=== PATIENT | male | born 1980 | race Caucasian/White ===

== ENCOUNTER 2022-01-09 16:18 | Inpatient (IN) | payer SELFPAY ==
[~2022-01-09] VITALS: Ht 185.4 cm; Wt 74.4 kg
--- NOTE | 2022-01-09 16:30 | NUR ---
[id number] FOR AGITATION M/B HITTING HEAD ON A WALL, ROLLING ON THE GROUND THE PATIENT IS ALERT AND ORIENTED X1. PT ATTACHED TO MONITOR. AWAITING MD BRAGG.
--- NOTE | 2022-01-09 16:35 | NUR ---
Carmelo mullins in [facility] - 01/09/22 at 1641 by JAZ URINE COLLECTED AND SENT TO THE LAB
--- NOTE | 2022-01-09 16:40 | NUR ---
Carmelo mullins in [facility] - 01/09/22 at 1641 by JAZ URINE SENT TO LAB
[2022-01-09] MEDS ORDERED: diphenhydrAMINE HCL 50 MG/ML VIAL ONE (16:48)
[2022-01-09] MEDS ORDERED: HALOPERIDOL LACTATE INJ 5 MG/ML VIAL ONE (16:49)
[2022-01-09] MEDS ORDERED: IV NS 0.9% 1,000 ML BAG IV ONE (17:00)
[2022-01-09] MEDS ORDERED: HALOPERIDOL LACTATE INJ 5 MG/ML VIAL IM ONE (17:00)
[2022-01-09] MEDS ORDERED: diphenhydrAMINE HCL 50 MG/ML VIAL IM ONE (17:00)
--- NOTE | 2022-01-09 17:03 | NUR ---
IV LINE ESTABLISHED ON LFA #18, BLOOD DRAWN AND SENT TO LAB.
[2022-01-09 17:08] LABS: BASOPHILS # (AUTO) 0.1 K/uL (0.0-0.2); BASOPHILS % (AUTO) 0.5 % (0.0-2.0); EOSINOPHILS % (AUTO) 0.7 % (0.0-6.0); HEMATOCRIT 35 % (33-45); HEMOGLOBIN 11.5 g/dL (11.5-14.8); LYMPHOCYTES # (AUTO) 1.7 K/uL (0.8-4.8); LYMPHOCYTES % (AUTO) 10.7 % (20.0-44.0); MEAN CORPUSCULAR HGB CONC 33 g/dl (31.0-36.0); MEAN CORPUSCULAR VOLUME 79 fL (82-100); MONOCYTES # (AUTO) 0.8 K/uL (0.1-1.30); MONOCYTES % (AUTO) 5.2 % (2.0-12.0); NEUTROPHILS # (AUTO) 12.8 K/uL (1.8-8.9); NEUTROPHILS % (AUTO) 82.9 % (43.0-81.0); PLATELET COUNT (AUTO) 248 K/uL (150-450); RED BLOOD CELL COUNT(AUTO) 4.46 MIL/uL (4.0-5.2); WHITE BLOOD COUNT (AUTO) 15.5 K/uL (4.3-11.0)
[2022-01-09 17:13] LABS: BILIRUBIN,URINE NEGATIVE (NEGATIVE); COLOR,URINE DARK YELLOW (YELLOW); LEUKOCYTE ESTERASE ,URINE NEGATIVE (NEGATIVE); NITRITE, URINE NEGATIVE (NEGATIVE); PROTEIN,URINE 30 mg/dl (NEGATIVE); UGLUCOSE NEGATIVE (NEGATIVE); UROBILINOGEN,URINE 0.2 EU/dL (0.2)
[2022-01-09 17:25] LABS: BACTERIA,URINE Many /HPF (None Seen); HYALINE CASTS, URINE Few /LPF (None Seen); SQUAMOUS EPITHELIAL CELL,UR Many /HPF (None Seen)
[2022-01-09 17:40] LABS: ALANINE AMINOTRANSFERASE 66 U/L (12-78); ALBUMIN 3.9 g/dL (3.4-5.0); ALKALINE PHOSPHATASE 93 U/L (46-116); ASPARTATE AMINOTRANSFERASE 48 U/L (15-37); BILIRUBIN,DIRECT 0.1 mg/dL (0.0-0.2); BILIRUBIN,TOTAL 0.6 mg/dL (0.2-1.0); CALCIUM, SERUM 8.6 mg/dL (8.5-10.1); CARBON DIOXIDE 28 mmol/L (21-32); CHLORIDE 103 mmol/L (98-107); GLUCOSE 71 mg/dL (74-106); POTASSIUM 3.9 mmol/L (3.5-5.1); SODIUM SERUM 142 mmol/L (136-145); TOTAL PROTEIN, SERUM 7.8 g/dL (6.4-8.2); UREA NITROGEN, BLOOD 37 mg/dL (7-18)
--- NOTE | 2022-01-09 17:42 | NUR ---
PT TAKEN TO CT VIA DEEPIKA
[2022-01-09 17:46] LABS: ACETAMINOPHEN < 2 ug/ml (10-30); ALCOHOL, BLOOD < 3 mg/dL (0-0)
[2022-01-09] MEDS ORDERED: TDAP [DIPH/PERTUSSIS/TET] 0.5 ML VIAL IM ONE ×2 (19:00→19:07)
--- NOTE | 2022-01-09 19:13 | NUR ---
TDAP GIVEN L DELTOID. LOT# [id number], EXP 10/28/2023
--- NOTE | 2022-01-09 19:36 | NUR ---
COVID SWAB SPECIMEN OBTAINED AND SENT TO LAB.
[2022-01-09] MEDS ORDERED: ASPIRIN 300 MG/SUPP.RECT RC ONE ×2 (20:30→20:44)
[2022-01-09] MEDS ORDERED: ACETAMINOPHEN 650 MG/SUPP.RECT RC ONE (20:42)
[2022-01-09] MEDS ORDERED: LORAZEPAM INJ 2 MG/ML VIAL IV PRN (21:00)
[2022-01-09] MEDS ORDERED: ACETAMINOPHEN 325 MG TABLET PO PRN (21:00)
[2022-01-09] MEDS ORDERED: ZOLPIDEM TARTRATE 5 MG TABLET PO PRN (21:00)
[2022-01-09] MEDS ORDERED: MAG HYDROX/AL HYDROX/SIMETH 30 ML UDC PO PRN (21:00)
[2022-01-09] MEDS ORDERED: MAGNESIUM HYDROXIDE 30 ML UDC PO PRN (21:00)
[2022-01-09] MEDS ORDERED: ONDANSETRON HCL/PF 4 MG/2 ML VIAL IVP PRN (21:00)
[2022-01-09] MEDS ORDERED: Z GUARD REMEDY 4 OZ OINT TP PRN (21:00)
[2022-01-09] MEDS ORDERED: IV NS 0.9% 1,000 ML IV ONE (22:30)
--- NOTE | 2022-01-09 22:30 | NUR ---
CRITICAL: TROP 80
--- NOTE | 2022-01-09 22:31 | NUR ---
TROP OF [address] CLEVELAND WITH NO NEW ORDER AT THIS TIME
--- NOTE | 2022-01-09 23:13 | NUR ---
REPORT GIVEN TO TIM COLUNGA FOR CHERYL
[2022-01-09] MEDS ORDERED: CEFTRIAXONE 1 G VIAL ONE (23:39)
[2022-01-09 23:40] VITALS: BP 129/90
[2022-01-09] MEDS: CEFTRIAXONE 1 G in IV D5W 50 ML IV SCH (23:40)
--- NOTE | 2022-01-09 23:40 | NUR ---
RN NOTES RECEIVED CARE OF PATIENT FROM ER NURSE, PATIENT IS NON-VERBAL, ANXIOUS, NON-INTERACTIVE, UNABLE TO MAKE NEEDS KNOWN. PATIENT IS ON ROOM AIR, O2 SAT IS 96%, NO SOB NOTED. TELE MONITOR SHOWING NSR WITH HR OF 73. INITIAL VITAL SIGNS ARE WNL. MULTIPLE WOUNDS NOTED ON PATIENT, ON BLE AND ON NOSE. WILL CARRY OUT ALL MD ORDERS. SAFETY MEASURES INITIATED PER HOSPITAL PROTOCOLS. WILL CONTINUE TO MONITOR PATIENT.
[2022-01-09] MEDS: IV NS 0.9% 1,000 ML IV SCH (23:44)
--- NOTE | 2022-01-10 | NUR ---
RN NOTES PATIENT IS NON-INTERACTIVE, NON-VERBAL, OPENS EYES TO LIGHT PAINFUL STIMULI ONLY. NOT ABLE TO OBTAIN ANY HISTORY OR ASK FOR CODE STATUS AT THIS TIME.
[2022-01-10 04:00] VITALS: BP 147/92
[2022-01-10] MEDS: IV NS 0.9% 1,000 ML IV SCH ×3 (05:37→16:40)
--- NOTE | 2022-01-10 06:21 | NUR ---
RN NOTES PATIENT WOKE UP FROM SLEEP. ALERT AND ORIENTED X3. PATIENT IS NOW ABLE TO VERBALIZE NEEDS. PATIENT EXPRESSES DISCOMFORT, REPOSITIONED PATIENT. PATIENT WISHES TO BE FULL CODE STATUS. WILL ORDER FULL CODE STATUS.
--- NOTE | 2022-01-10 06:49 | NUR ---
RN CLOSING NOTES WILL ENDORSE CARE OF PATIENT TO AM NURSE, PATIENT IN BED, PATIENT IS A/O X3, ABLE TO MAKE NEEDS KNOWN. PATIENT IN NO DISCOMFORT OR PAIN AT THIS TIME, PATIENT DOES APPEAR ANXIOUS, DEESCALATION AND RELAXATION TECHNIQUES PROVEN INEFFECTIVE. NO SIGNIFICANT FINDINGS UPON ALL NURSING ASSESSMENTS. ALL DUE MEDS GIVEN AND PATIENT NEEDS ATTENDED TO. SAFETY MEASURES IMPLEMENTED PER HOSPITAL PROTOCOLS. WILL ENDORSE TO AM NURSE FOR CONTINUITY OF CARE.
[2022-01-10 07:18] LABS: BASOPHILS % (AUTO) 0.4 % (0.0-2.0); EOSINOPHILS % (AUTO) 1.7 % (0.0-6.0); HEMATOCRIT 35 % (39-51); HEMOGLOBIN 11.7 g/dL (13.5-17.5); LYMPHOCYTES # (AUTO) 1.9 K/uL (0.8-4.8); LYMPHOCYTES % (AUTO) 20.1 % (20.0-44.0); MEAN CORPUSCULAR HGB CONC 33 g/dl (31.0-36.0); MEAN CORPUSCULAR VOLUME 79 fL (80-96); MONOCYTES # (AUTO) 0.6 K/uL (0.1-1.30); MONOCYTES % (AUTO) 6.2 % (2.0-12.0); NEUTROPHILS # (AUTO) 6.8 K/uL (1.8-8.9); NEUTROPHILS % (AUTO) 71.6 % (43.0-81.0); PLATELET COUNT (AUTO) 209 K/uL (150-450); RED BLOOD CELL COUNT(AUTO) 4.45 MIL/uL (4.5-6.0); WHITE BLOOD COUNT (AUTO) 9.5 K/uL (4.3-11.0)
[2022-01-10 07:39] LABS: CALCIUM, SERUM 8.6 mg/dL (8.5-10.1); CREATININE 1.4 mg/dL (0.6-1.3); MAGNESIUM 2.1 mg/dL (1.8-2.4); PHOSPHORUS 3.4 mg/dL (2.5-4.9); POTASSIUM 3.7 mmol/L (3.5-5.1)
[2022-01-10 08:00] VITALS: BP 160/90
[2022-01-10 12:00] VITALS: BP 175/114
[2022-01-10] MEDS: NITROGLYCERIN PACKET 1 GM PACKET TOP SCH ×2 (12:54→20:25)
[2022-01-10 16:00] VITALS: BP 161/97
--- NOTE | 2022-01-10 16:20 | NUR ---
RN NOTE PT NOTED WITH HIGH BP-175/114 P-85. PT STILL NOTED LETHARGIC, CARDIO MD MADE AWARE, WITH NEW ORDER NITRO PASTE 2G. WILL CONTINUE TO MONITOR.
--- NOTE | 2022-01-10 18:33 | NUR ---
RN NOTE PT RN SWALLOW EVAL WITH PUDDING, PT TOLERATED WELL WITH ASPIRATION. WILL INFORM PMD. PT STILL NOTED LETHARGIC AT TIMES BUT NOTED WITH EPISODES OF BEING WELL AWAKE. SAFETY MEASURES FOLLOWED. IV ACCESS TO LFA G20 IN PLACE WITH NS @125/HR. WILL CONTINUE TO MONITOR.
--- NOTE | 2022-01-10 19:30 | NUR ---
RN OPENING NOTE PATIENT IN BED, EYES CLOSED. PATIENT AWAKENED WITH VERBAL STIMULI, PATIENT MILDLY LETHARGIC. PATIENT IS A/O X 3 AT THIS TIME. PATIENT IS ON RA, TOLERATING WELL, NO SOB NOTED. PATIENT IS SR 92 BPM WITH INVERTED T WAVE. PATIENT HAS NS RUNNING AT 125 ML/HR AT LFA 20 G. INFUSING WELL. NO REPORTS OF PAIN AT THIS TIME. SAFETY MEASURES IN PLACE: BED LOCKED AND IN LOWEST POSITION, CALL LIGHT WITHIN REACH, SIDE RAILS UP. WILL MONITOR PATIENT CLOSELY.
[2022-01-10 20:00] VITALS: BP_SYST 107; BP_SYST 165; BP_DIAS 104; BP_DIAS 55
[2022-01-10] MEDS: CEFTRIAXONE 1 G in IV D5W 50 ML IV SCH (20:25)
--- NOTE | 2022-01-10 21:15 | NUR ---
RN NOTE NOTIFIED MD OF PATIENT'S HIGH BP, ORDERED ATIVAN 1 MG IV ONE TIME DOSE ONLY PATIENT'S BP HIGH D/T PATIENT GOING THROUGH WITHDRAWAL. ALSO NOTIFIED MD THAT PATIENT IS NOW A/O X 3, TALKING AND AWAKE. PATIENT NOW REGULAR DIET. WILL MONITOR TOLERANCE FOR DIET. Addendum: 01/10/22 at 2331 by HERBERT RAUSCH RN BP 165/104, RECHECK 168/101, MANUAL RECHECK 170/108
[2022-01-10] MEDS ORDERED: LORAZEPAM INJ 2 MG/ML VIAL IV ONE (21:30)
--- NOTE | 2022-01-10 22:30 | NUR ---
BP RECHECK AFTER 1 HR AFTER ATIVAN ADMIN 191, 123, 190/129, MANUAL RECHECK 180/125 HR 94 BPM. PAGED , AWAITING CALL BACK.
--- NOTE | 2022-01-10 23:24 | NUR ---
RN NOTE DR. CLEVELAND NOTIFIED OF INCREASING BP, MD ORDERED HYDRALAZINE 25 MG PO ONCE NOW. ORDER READ BACK, CARRIED OUT.
[2022-01-10] MEDS ORDERED: hydrALAZINE HCL 25 MG TABLET PO ONE (23:30)
[2022-01-11] VITALS: BP 158/97
[2022-01-11 04:00] VITALS: BP 200/110
--- NOTE | 2022-01-11 04:30 | NUR ---
RN NOTE BP 235/97, MANUAL BP RECHECK 200/110. PAGED. WAITING CALL BACK
[2022-01-11] MEDS: IV NS 0.9% 1,000 ML IV SCH ×2 (04:44→21:00)
--- NOTE | 2022-01-11 06:20 | NUR ---
NOTIFIED BY TRUDY FROM LAB RE: HIGH CKMB LEVEL 11.2, WILL NOTIFY
--- NOTE | 2022-01-11 06:44 | NUR ---
RN CLOSING NOTE PATIENT IN BED, EYES CLOSED. PATIENT AWAKENED WITH VERBAL STIMULI, A/O X 2-3 AT THIS TIME. PATIENT IS ON RA, TOLERATING WELL, NO SOB NOTED. PATIENT IS SR 90 BPM WITH INVERTED T WAVE. PATIENT HAS A LFA 20 G, IVF ON HOLD AT THIS TIME D/T HIGH BP. MD AWARE, WHEN BP GOES DOWN THEY CAN RESTART, MD AWARE OF CKMB LEVEL WELL. MD ORDERED HYDRALAZINE 25 MG PO Q6HR PRN, TRBO. NO REPORTS OF PAIN AT THIS TIME. SAFETY MEASURES IN PLACE: BED LOCKED AND IN LOWEST POSITION, CALL LIGHT WITHIN REACH, SIDE RAILS UP. ALL NEEDS MET AND ATTENDED. ALL ORDERS CARRIED OUT. WILL ENDORSE TO DAY SHIFT NURSE FOR CHERYL.
[2022-01-11] MEDS: hydrALAZINE HCL 25 MG TABLET PO PRN ×2 (07:08→17:26)
--- NOTE | 2022-01-11 07:08 | NUR ---
HYDRALAZINE PRN GIVEN FOR BP 197/108, HR 93 BPM
--- NOTE | 2022-01-11 07:35 | NUR ---
RN OPENING NOTE RECIEVED PATIENT FROM NIGHTSHIFT RN. PATIENT CURRENTLY ASLEEP BREATHING EVENLY AND UNLABORED WITH NO SIGNS OF DISTRESS NOTED. CRISIS NURSE IS SHOWING SINUS RHYTHM IN THE 90S WITH INVERTED T-WAVES. SCABS NOTED ON NOSE. FACIAL LACERATION NOTED. WOUNDS CLOSED. BED ALARM IS ON WITH BED AT LOWEST POSITION AND CALL LIGHT WITHIN REACH. IV ACCESS ON LEFT FOREARM, NO FLUIDS RUNNING AT THIS TIME DUE TO HYPERTENSION. WILL CONTINUE PLAN OF CARE AND ANTICIPATE NEEDS.
[2022-01-11 08:00] VITALS: BP 199/126
[2022-01-11] MEDS: NITROGLYCERIN PACKET 1 GM PACKET TOP SCH ×2 (08:24→21:03)
--- NOTE | 2022-01-11 08:52 | NUR ---
WOUND CARE CONSULT: PT PRESENTS WITH DRY ABRASION TO NOSE, MULTIPLE AREAS OF SKIN DISCOLORATION AND SCARRING WELL LEFT LATERAL FOOT ABRASION, PRESENT ON ADMISSION. RECOMMENDATIONS MADE FOR SKIN PROTECTION. DISCUSSED WITH NURSING STAFF. PT IS CONTINENT AND INDEPENDENT WITH BED MOBILITY. MD IN AGREEMENT WITH PLAN OF CARE.
[2022-01-11] MEDS ORDERED: CLONIDINE HCL 0.3 MG/24H PTWK 1 EA PATCH TD SCH (09:00)
--- NOTE | 2022-01-11 09:50 | NUR ---
RECHECKED VITAL SIGNS. BLOOD PRESSURE 142/96. PULSE 87.
[2022-01-11] MEDS: AMLODIPINE BESYLATE 10 MG TABLET PO SCH (10:26)
[2022-01-11 12:00] VITALS: BP 165/95
[2022-01-11] MEDS: hydrALAZINE HCL 25 MG TABLET PO SCH ×2 (12:50→21:01)
[2022-01-11 16:00] VITALS: BP 168/101
--- NOTE | 2022-01-11 17:00 | NUR ---
RN NOTE IVF REMAINS ON HOLD DUE TO BLOOD PRESSURE, 168/101
--- NOTE | 2022-01-11 18:49 | NUR ---
RN CLOSING NOTE PATIENT BREATHING EVENLY AND UNLABORED WITH NO SIGNS OF DISTRESS ON ROOM AIR SATING AT 100%. ALERT AND ORIENTED TIMES 4. PATIENT REFUSED BED BATH THROUGHOUT SHIFT. BED ALARM IS ON WITH BED AT LOWEST POSITION AND CALL LIGHT WITHIN REACH. IV ACCESS ON LEFT FOREARM, NO FLUIDS RUNNING AT THIS TIME DUE TO HYPERTENSION. ALL MEDICATIONS GIVEN. PATIENT FINISHED ALL MEALS AND HAD ADDITIONAL SNACKS. WILL ENDORSE TO NIGHTSHIFT RN FOR CHERYL.
--- NOTE | 2022-01-11 19:05 | NUR ---
RN NOTE REPORT RECEIVED FROM LORNA RN/SHARON RN, PATIENT IN BED, AO X 3-4, IN NO ACUTE DISTRESS AT THIS TIME. RESPIRATION UNLABORED, SATURATION AT 100% ON ROOM AIR, SR ON THE MONITOR, HR IS 98. IV LINE AT LFA 20G PATENT AND FLUSHING WELL, NO S/S OF INFECTION OR INFILTRATION, PER LORNA RN/SHARON RN, IV FLUID HELD BY MD DUE TO HIGH BP, TO RESUME ONCE BP AT NORMAL LIMITS. SAFETY MEASURES IMPLEMENTED. PATIENT BED ALARM IS ON. HEAD OF BED ELEVATED. BED IS LOCKED, IN LOWEST POSITION AND SIDE RAILS UP. CALL LIGHT WITHIN REACH OF THE PATIENT. WILL CONTINUE TO MONITOR AND REASSESS FOR ANY CHANGES.
--- NOTE | 2022-01-11 19:10 | NUR ---
RN NOTE REPORT RECEIVED FROM SHARON RN/LORNA RN, PATIENT IN BED, AO X 3-4, IN NO ACUTE DISTRESS AT THIS TIME. RESPIRATION UNLABORED, SATURATION AT 95% ON ROOM AIR, HR IS 82. ANGEL MIDLINE, AND AMANDO PICC LINE PATENT AND FLUSHING WELL, NO S/S OF INFECTION OR BLEEDING NOTED, WITH NS INFUSING AT 75 ML/HR. PATIENT IS CONTINENT AND ABLE TO USE URINAL. SAFETY MEASURES IMPLEMENTED. PATIENT BED ALARM IS ON. HEAD OF BED ELEVATED. BED IS LOCKED, IN LOWEST POSITION AND SIDE RAILS UP. CALL LIGHT WITHIN REACH OF THE PATIENT. WILL CONTINUE TO MONITOR AND REASSESS FOR ANY CHANGES. Addendum: 01/12/22 at 0004 by FRITZ ROJO RN DOCUMENTATION MEANT FOR ANOTHER PATIENT
[2022-01-11 20:00] VITALS: BP 151/97
[2022-01-11] MEDS: CEFTRIAXONE 1 G in IV D5W 50 ML IV SCH (21:03)
[2022-01-12] VITALS: BP 146/52
[2022-01-12 04:00] VITALS: BP 138/62
[2022-01-12] MEDS: hydrALAZINE HCL 25 MG TABLET PO SCH (06:05)
[2022-01-12] MEDS: IV NS 0.9% 1,000 ML IV SCH (06:21)
[2022-01-12 08:00] VITALS: BP 192/140
[2022-01-12] MEDS: NITROGLYCERIN PACKET 1 GM PACKET TOP SCH (08:18)
[2022-01-12] MEDS: AMLODIPINE BESYLATE 10 MG TABLET PO SCH (08:19)
[2022-01-12] MEDS ORDERED: hydrALAZINE HCL 50 MG TABLET PO SCH ×2 (09:00→13:00)
[2022-01-12] MEDS ORDERED: ISOSORBIDE DINITRATE (20MG) 20 MG TABLET PO SCH (09:00)
[2022-01-12] MEDS ORDERED: hydrALAZINE HCL 25 MG TABLET PO ONE (09:30)
[2022-01-12 11:04] VITALS: BP 170/80
--- NOTE | 2022-01-12 11:06 | NUR ---
partient calm,removed his monitor and verbalized to nurse " i will leave hospital now',rechecked bp sbp 170,per pt he feels fine and still wanted to leave,signed ama,and clinical social work aide talking to patient iv removed,waiver signed,discussed risk of leaving ama including possble stroke r/t high bp and , still insisted to leave,instructed to come back to er if c/o headache and symptoms persist.
--- NOTE | 2022-01-12 11:09 | NUR ---
left hospital ambulatory.
--- NOTE | 2022-01-12 11:19 | NUR ---
dr. martinez notified.
--- NOTE | 2022-01-12 12:35 | NUR ---
"Pt. wanted to sign AMA and not continue with his medical treatment. SW access pt. and he denies suicidal and homicidal ideation. Pt. stated that he is currently staying at a penitentiary [would not provide name], and wants to go back. SW provided pt. with more penitentiary resources for pt. to keep. Pt. signed homeless waiver and its placed in chart. SW provided pt. with a TAP card on his request. Resources Provided: Year-round shelters: [facility] [place] [address] [place] [address] ; [facility] [place] [address] [place] [address]; [facility]ks[address] [facility]. [facility] [address] Winter Shelters: Ervin Kang [place] Provider: Celia [facility] [place] Address: [address] [place], [address] # of Beds: 47 Population Served: [facility] 6 | [facility] Alis Saldivar[facility]une [place] Provider: [facility] Address: [address], [address] # of Beds: 66 Population Served: [facility] Provider: First [facility] Serve Address: [address] [facility], [address] # of Beds: 56 Population Served: [facility] [place] Provider: [facility] Address: [address] [place] [address], [address] # of Beds: 49 Population Served: [facility] 8 | [facility] Provider: First to Serve Address: [address] [facility], [address] # of Beds: 37 Population Served: [facility] Hygiene: [facility]: [address] [address] ; [place] [facility] [address] [facility] ; [facility] [address] . Food Resources: [place] [facility] at [facility]- [address] [place]; Meet Each Need with Dignity ([facility]) [address] [place]; [facility] [address] [facility]; [facility] 0307 [facility]. Mental Health resources provided: [facility] [address] [place] [address] ; [facility] [address] [facility] [address], [place], [place] [phone] ; [facility] [address] [place], [place] [phone] ; [facility] [address] [place], [place] [address] Healthcare Clinics: [facility] [address] [facility], [address] [place]. [place] ; [facility] [employer] [facility] [address] [place] [address]; [facility] [address] [facility]. [place] [phone] Counseling--Outpatient [facility] [address], [address] [place], [place] [address] (Specializes in in-depth psychotherapy for emotional distress: anxiety, depression, interpersonal conflicts, life transitions, childhood abuse) [facility] [address] [place], [place] [phone] (Assist with solving problem marital difficulties, separation & divorce, aging parents, & grief, chronic & terminal illness) [facility] [address] [place], [place] [phone] (Deal with loss & grief, anxiety, marital difficulties) Homebound/Mental Health Services [address] [facility], [address] [place] [address] (Provide in-home mental services to people who are incapable of leaving their homes) [facility] of [facility] Elderly Senior Service/Resource Center [address] [place] [address] [facility] [address] [place] [address] PSYCHIATRIC OUTPATIENT SERVICES [facility] Partial Hospitalization and Intensive Outpatient Program (Managed Care and [facility] Only)[address] [facility] [phone] [facility] Partial Hospitalization and Outpatient [address] [place], [place] [phone] [facility] [place] [id number] [facility]. [address] [place], [place] [phone] [facility] Partial Hospitalization and Outpatient Zkethdn75963 [facility] Jed [place], [phone] Substance Abuse resources provided included: [facility] Substance Abuse Self-Helpline ([facility]) ; [facility] [address] [facility]. [place] [phone] ; [facility] [address] [facility] [address] [address] ; [facility] Rehabilitation Program [address] [facility] [address] ; [facility] [address] [facility] [address] ; [facility] [address] [facility] [phone] ; [facility] The [facility] 909 [facility] [address] ; [facility] Substance Abuse Helpline([facility] ; [facility] ; [facility] [place]; [facility] [place]; [facility] [place]; [facility] [place]; [facility] [place]; [facility] [place]; [facility] Tammi; [facility] [place], [facility]. [facility]; Alcoholics Anonymous -[facility]; Samantha ; Marijuana Anonymous -[facility]; Narcotics Anonymous www.na.org;"
== END 2022-01-12 20:07 | disposition left against medical advice (07) | DRG 917 ==
LOC: ER 16:20 → EDSEX 16:20 → TELE1 22:24
PROVIDERS: ADMIT Family Medicine; ATTEND Internal Medicine
DX: T43.621A Poisoning by amphetamines, accidental (unintentional), initial encounter (principal); I21.A1 Myocardial infarction type 2; N17.0 Acute kidney failure with tubular necrosis; N39.0 Urinary tract infection, site not specified; Y92.89 Other specified places as the place of occurrence of the external cause; I10 Essential (primary) hypertension; F19.10 Other psychoactive substance abuse, uncomplicated
CPT/HCPCS: 36415; 70450-TC; 70486-TC; 71045-TC; 72125-TC; 76770-TC; 80048-TC; 80076-TC; 81001; 82550-TC; 82553; 83735-TC; 84100-TC; 84484-TC; 85025-TC; 87081-TC; 87086-TC; 90715; 93307-TC; C9803; G0378; G0480; J0696; J1200; J1630; J2060; J7030; J7060

== ENCOUNTER 2022-02-04 13:15 | Emergency (ER) | payer MEDICAID ==
[~2022-02-04] VITALS: Ht 175.3 cm; Wt 77.6 kg
--- NOTE | 2022-02-04 13:44 | NUR ---
[id number] OD FOUND DOWN ON STREET UNKOWN SUBSTANCE. BG 114. GIVEN 10MG OF VERSED IN FIELD PER EMS. PT EYES CLOSED, UNRESPONSIVE. PLACED ON EMPLOYMENT TRAINER, SR. VSS. SKIN PINK & WARM, RR EVEN & UNLABORERD, ON 10L OF O2 MASK, SAT 99%. AWAITING EVAL BY ERMD & WILL CONT TO MONITOR.
--- NOTE | 2022-02-04 14:21 | NUR ---
PT SLEEPING, SNORING, UNRESPONSIVE, PUPIL PINPOINT. RR EVEN & UNLABORED. VSS. ON TELE, NSR. WILL CONT TO MONITOR.
[2022-02-04] MEDS ORDERED: IV NS 0.9% 1,000 ML BAG IV ONE (14:30)
[2022-02-04 14:38] LABS: BASOPHILS # (AUTO) 0.1 K/uL (0.0-0.2); BASOPHILS % (AUTO) 0.8 % (0.0-2.0); EOSINOPHILS % (AUTO) 2.9 % (0.0-6.0); HEMATOCRIT 33 % (39-51); HEMOGLOBIN 10.7 g/dL (13.5-17.5); LYMPHOCYTES # (AUTO) 1.7 K/uL (0.8-4.8); LYMPHOCYTES % (AUTO) 23.7 % (20.0-44.0); MEAN CORPUSCULAR HGB CONC 33 g/dl (31.0-36.0); MEAN CORPUSCULAR VOLUME 80 fL (80-96); MONOCYTES # (AUTO) 0.5 K/uL (0.1-1.30); MONOCYTES % (AUTO) 6.4 % (2.0-12.0); NEUTROPHILS # (AUTO) 4.9 K/uL (1.8-8.9); NEUTROPHILS % (AUTO) 66.2 % (43.0-81.0); PLATELET COUNT (AUTO) 324 K/uL (150-450); RED BLOOD CELL COUNT(AUTO) 4.05 MIL/uL (4.5-6.0); WHITE BLOOD COUNT (AUTO) 7.3 K/uL (4.3-11.0)
--- NOTE | 2022-02-04 14:42 | NUR ---
TAKEN TO CT VIA DEEPIKA
[2022-02-04 15:08] LABS: BILIRUBIN,URINE NEGATIVE (NEGATIVE); COLOR,URINE YELLOW (YELLOW); LEUKOCYTE ESTERASE ,URINE NEGATIVE (NEGATIVE); NITRITE, URINE NEGATIVE (NEGATIVE); PH,URINE 5.5 (5.0-8.0); PROTEIN,URINE 100 mg/dl (NEGATIVE); UGLUCOSE NEGATIVE (NEGATIVE); UROBILINOGEN,URINE 0.2 EU/dL (0.2)
--- NOTE | 2022-02-04 15:10 | NUR ---
PT BACK FROM CT. PT STILL UNRESPONSIVE, RR EVEN & UNLABORED. VSS. ON TELE, NSR. DR. BARRIENTOS AWARE. WILL CONT TO MONITOR.
[2022-02-04 15:16] LABS: BACTERIA,URINE 1+ /HPF (None Seen); COARSE GRANULAR CASTS,URINE Few /LPF (None Seen); SQUAMOUS EPITHELIAL CELL,UR 0-2 /HPF (None Seen)
[2022-02-04 15:17] LABS: HYALINE CASTS, URINE Few /LPF (None Seen); URINE AMORPHOUS URATE Few /HPF (None Seen)
[2022-02-04] MEDS ORDERED: NALOXONE HCL 0.4 MG/ML AMPUL IV ONE (15:30)
[2022-02-04 15:34] LABS: ALANINE AMINOTRANSFERASE 52 U/L (12-78); ALBUMIN 3.5 g/dL (3.4-5.0); ALCOHOL, BLOOD < 3 mg/dL (0-0); ALKALINE PHOSPHATASE 95 U/L (46-116); ASPARTATE AMINOTRANSFERASE 64 U/L (15-37); BILIRUBIN,DIRECT 0.1 mg/dL (0.0-0.2); BILIRUBIN,TOTAL 0.3 mg/dL (0.2-1.0); CALCIUM, SERUM 8.4 mg/dL (8.5-10.1); CARBON DIOXIDE 26 mmol/L (21-32); CHLORIDE 103 mmol/L (98-107); CREATININE 1.7 mg/dL (0.6-1.3); GLUCOSE 80 mg/dL (74-106); POTASSIUM 3.4 mmol/L (3.5-5.1); SODIUM SERUM 139 mmol/L (136-145); TOTAL PROTEIN, SERUM 7.1 g/dL (6.4-8.2); UREA NITROGEN, BLOOD 29 mg/dL (7-18)
[2022-02-04 15:37] LABS: ACETAMINOPHEN < 10 ug/ml (10-30)
[2022-02-04] MEDS ORDERED: NALOXONE PREFILLED SYRINGE 2 MG/2 ML SYRINGE ONE (16:01)
--- NOTE | 2022-02-04 16:06 | NUR ---
MEDICATED PER ERMD ORDER. WILL CONT TO MONITOR.
[2022-02-04] MEDS ORDERED: NALO1DIS2 IM (17:57)
--- NOTE | 2022-02-04 17:58 | NUR ---
PT AAOX3, GIVEN WATER & ALFIE WELL. ERMD AWARE.
--- NOTE | 2022-02-04 18:29 | NUR ---
Patient discharged to home in stable condition. Written and verbal after care instructions given. Patient verbalizes understanding of instruction. IV removed. Catheter intact and site benign. Pressure and 4x4 applied to site. No bleeding noted.
[2022-02-04 18:31] VITALS: BP 124/78
== END 2022-02-04 18:32 | disposition home or self-care (01) ==
LOC: ER 13:17
DX: F19.10 Other psychoactive substance abuse, uncomplicated (principal)
CPT/HCPCS: 99284; 96374; 96361; 70450; 85025; 80048; 80076; 81001; 36415; 80143; 80320; 80307; J7030; J2310; G0480